=== PATIENT | female | born 1995 | race Two or more races ===

== ENCOUNTER 2018-04-27 21:44 | Emergency (ER) | payer OTHER ==
[~2018-04-27] VITALS: Ht 162.6 cm; Wt 52.6 kg
[2018-04-27 22:11] VITALS: BP 134/81
[2018-04-27] MEDS ORDERED: oxyCODONE/APAP (5/325 MG) 1 UDTAB TABLET PO ONE (22:30)
[2018-04-27] MEDS ORDERED: ONDANSETRON 4 MG TAB.RAPDIS SL ONE (22:30)
[2018-04-27] MEDS ORDERED: oxyCODONE/APAP (5/325 MG) 1 UDTAB TABLET ONE (22:39)
[2018-04-27] MEDS ORDERED: ONDANSETRON 4 MG TAB.RAPDIS ONE (22:40)
== END 2018-04-27 23:24 ==
LOC: ER 21:49
DX: S00.83XA Contusion of other part of head, initial encounter (principal); Y04.0XXA Assault by unarmed brawl or fight, initial encounter; Y93.89 Activity, other specified; Y92.89 Other specified places as the place of occurrence of the external cause; Y99.8 Other external cause status
CPT/HCPCS: 70110; 99284; A4606; Q0162; Z7610